=== PATIENT | male | born 1990 | race Caucasian/White ===

== ENCOUNTER → 2018-03-15 14:17 | Outpatient (CLI) | payer OTHER, SELFPAY ==
--- NOTE | 2018-03-15 14:24 | RAD_ITS ---
STUDY: X-RAY CHEST REASON FOR EXAM: Male, 28 years old. Chest pain. TECHNIQUE: PA and lateral views of the chest. COMPARISON: None. FINDINGS: The lungs are clear and expanded. There is no demonstrated pleural abnormality. Normal size heart. Normal mediastinum and valery. Normal visualized pulmonary arteries. Normal visualized aortic arch and descending thoracic aorta. Normal visualized thoracic spine. Normal visualized ribs, clavicles, and shoulders. There is no demonstrated abnormality of the visualized soft tissue structures of the upper abdomen. RAD/Chest PA and Lateral IMPRESSION: Normal x-ray examination of the chest. Electronically Signed: Chandler Onofre MD at 14:39 EST , Service support ,
[2018-03-15 15:48] LABS: Absolute Lymphocyte Count 2.59 X10^3/ul (0.83-4.51); Absolute Neutrophil Count 3.1 X10^3/uL (2.0-7.7); Basophil# 0.03 X10^3/uL; Basophil% 0.5 % (0-1); Eosinophil# 0.08 X10^3/uL; Eosinophils% 1.2 % (0-5); Hematocrit 46.5 % (40-54); Hemoglobin 15.2 g/dl (13.0-16.5); Lymphocyte # 2.59 X10^3/ul (4.0); Lymphocyte % 39.8 % (19-41); Mean Corp Hgb Conc 32.7 g/gl (32-36); Mean Corpuscular Hgb 28.4 pg (27.0-32.0); Mean Corpuscular Volume 86.8 fL (80-94); Mean Platelet Vol. 9.6 fl (6.2-12.0); Monocyte# 0.68 X10^3/uL; Monocyte% 10.4 % (0-10); Neutrophil # 3.12 X10^3/uL (2.7-7.7); Neutrophil % 47.9 % (47-70); Platelet Count 294 K/mm3 (150-450); RBC Distribution Width CV 12.4 % (11.6-14.6); RBC Distribution Width SD 39.6 fl (35.1-43.9); Red Blood Count 5.36 M/mm3 (4.6-6.2); White Blood Count 6.5 K/mm3 (4.4-11.0)
[2018-03-15 15:51] LABS: POSITIVE COUNT NO; POSITIVE DIFFERENTIAL NO; POSITIVE MORPHOLOGY NO
[2018-03-15 15:59] LABS: D-Dimer Quantitative (DVT/PE) < 0.27 FEU/ug/m (0.27-0.49)
== END ==
PROVIDERS: Family Provider Family Medicine; PCP Family Medicine; Referring Provider Family Medicine; Visit Provider Family Medicine
DX: R07.89 Other chest pain (principal)
CPT/HCPCS: 36415; 71046; 85025; 85379

== ENCOUNTER → 2019-03-21 09:06 | Outpatient (CLI) | payer OTHER, SELFPAY ==
[2016-09-19 22:16] VITALS: BMI 36.6
[2019-03-21 10:34] LABS: Anion Gap 8 (5-15); BUN 24 mg/dL (7-18); BUN/Creat Ratio 22.9 RATIO (10-20); Calcium,Total 9.1 mg/dL (8.5-10.1); Chloride 110 mmol/L (98-107); Cholesterol 178 mg/dL (200); Creatinine, Serum 1.05 mg/dL (0.70-1.30); EST Glomerular Filtration Rate 88 mL/min (>60); Est Glom Filt Rate - Afr Amer 107 mL/min (>60); Glucose 87 mg/dL (74-106); High Density Lipoprotein 39 mg/dL; Potassium 4.2 mmol/L (3.5-5.1); Sodium Level 143 mmol/L (136-145); Triglycerides 105 mg/dL; Very Low Density Lipoprotein 21 mg/dL (5-40)
== END ==
PROVIDERS: PCP Family Medicine; Referring Provider Family Medicine; Visit Provider Family Medicine
DX: E66.9 Obesity, unspecified (principal)
CPT/HCPCS: 36415; 80048; 80061

== ENCOUNTER 2024-02-06 17:38 | Emergency (ER) | payer BC, SELFPAY ==
[2024-02-06] VITALS (7 sets, daily range): BP systolic 102–152; BP diastolic 64–96; PULSE 65–87; RESP 14–18; TEMP 35.6–36.6; O2SAT 97–98; BMI 39.9
--- NOTE | 2024-02-06 17:47 | EKG12_ITS ---
Test Reason : PALP Blood Pressure : */* mmHG Vent. Rate : 81 BPM Atrial Rate : 81 BPM P-R Int : 176 ms QRS Dur : 86 ms QT Int : 366 ms P-R-T Axes : 58 15 29 degrees QTcB Int : 425 ms Normal sinus rhythm Normal ECG Confirmed by BERTIN ROBERTS, NICK ([id number]), editorial intern ANKITA ABDUL ([id number]) on 02/08/2024 6:18:32 AM Referred By: UG/CG Confirmed By: NICK DENTON MD
--- NOTE | 2024-02-06 17:53 | RAD_ITS ---
EXAM: XR CHEST, 1 VIEW CLINICAL INDICATION: chest pain TECHNIQUE: Frontal view of the chest. COMPARISON: March 15, 2018. FINDINGS: LUNGS AND PLEURAL SPACES: Unremarkable. No consolidation or edema. No pneumothorax. No effusion. HEART: Unremarkable. Cardiac silhouette not enlarged. MEDIASTINUM: Central airways and mediastinal contour are unremarkable. BONES/JOINTS: Unremarkable. No acute fracture. SOFT TISSUES: Unremarkable. RAD/Chest 1 View (Portable) IMPRESSION: No radiographic evidence of acute cardiopulmonary disease. Electronically Signed: Tita Barber MD at 18:24 EST ,
[2024-02-06 18:03] LABS: Absolute Lymphocyte Count 3.18 X10^3/uL (0.83-4.51); Absolute Neutrophil Count 5.9 X10^3/uL (2.0-7.7); Basophil# 0.06 X10^3/uL; Basophil% 0.6 % (0-1); Eosinophil# 0.16 X10^3/uL; Eosinophils% 1.6 % (0-5); Hematocrit 46.4 % (40-54); Hemoglobin 15.7 g/dL (13.0-16.5); Lymphocyte # 3.18 X10^3/ul (0.83-4.51); Lymphocyte % 31.5 % (19-41); Mean Corp Hgb Conc 33.8 g/dL (32-36); Mean Corpuscular Hgb 28.4 pg (27.0-32.0); Mean Corpuscular Volume 84.1 fL (80-94); Mean Platelet Vol. 9.2 fl (6.2-12.0); Monocyte# 0.77 X10^3/uL; Monocyte% 7.6 % (0-10); NRBC Flagged by Analyzer 0 % (0-5); Neutrophil # 5.88 X10^3/uL (2.7-7.7); Neutrophil % 58.4 % (47-70); Platelet Count 320 K/mm3 (150-450); RBC Distribution Width CV 12.3 % (11.6-14.6); RBC Distribution Width SD 37.2 fl (35.1-43.9); Red Blood Count 5.52 M/mm3 (4.6-6.2); White Blood Count 10.1 K/mm3 (4.4-11.0)
[2024-02-06 18:29] LABS: Anion Gap 5 (5-15); BUN 21 mg/dL (7-18); BUN/Creat Ratio 17.9 RATIO (10-20); Calcium,Total 9.1 mg/dL (8.5-10.1); Chloride 106 mmol/L (98-107); Creatinine, Serum 1.17 mg/dL (0.70-1.30); EST Glomerular Filtration Rate 75 mL/min (>60); Est Glom Filt Rate - Afr Amer 91 mL/min (>60); Estimated Creatinine Clearance 124.52 ml/min; Glucose 117 mg/dL (74-106); Potassium 3.7 mmol/L (3.5-5.1); Sodium Level 138 mmol/L (136-145); Troponin-I HS (w/2H Reflex) < 3 pg/mL (3.0-78.0)
--- NOTE | 2024-02-06 19:02 | EKG12_ITS ---
Test Reason : REPEAT EKG Blood Pressure : */* mmHG Vent. Rate : 69 BPM Atrial Rate : 69 BPM P-R Int : 178 ms QRS Dur : 94 ms QT Int : 390 ms P-R-T Axes : 46 -2 14 degrees QTcB Int : 417 ms Normal sinus rhythm with sinus arrhythmia Normal ECG Confirmed by NICK DENTON MD ([id number]), editor city ANKITA ABDUL ([id number]) on 02/08/2024 6:12:12 AM Referred By: Confirmed By: NICK DENTON MD
[2024-02-06 20:14] LABS: Reflex Troponin-HS? (from REC) Y
[2024-02-06 20:59] LABS: Troponin-I HS < 3 pg/mL (3.0-78.0)
--- NOTE | 2024-02-06 21:38 | EDS_ITS ---
HPI History of Present Illness Chief Complaint: Palpitations Detail of Chief Complaint: Irregular heartbeat/palpitation with discomfort radiating to left shoulder Informant: patient Onset/Context/Timing Onset: Hours Activity at onset: sudden and rest Timing: Intermittent Quality: Positive for Dull Location: Left Parasternal (Radiation to the left shoulder.) Current Severity: Gone Maximum Severity: Moderate Worsened By: Nothing Relieved By: Nothing Associated Symptoms: Positive for Dyspnea; Negative for Nausea, Vomiting, Diaphoresis, Cough, Fever, Lightheadedness, Acid Reflux or Palpitations Narrative Narrative: Patient is a 34-year-old male. He has a history of atrial fibrillation. He was seen by delivery motorcycle driver at [facility]. He was admitted last year. Echo was negative. He initially was on anticoagulant and switch to aspirin. Still taking aspirin. He saw the delivery motorcycle driver in November of this year. Recommendation was to continue aspirin for another 6 months unless he has another episode. Patient states he is cut back on alcohol since he had the A- fib. He has had recent sweats, weight loss that is probably intentional. He has changed his lifestyle and eating habits. He denies fever, chills night sweats. He denies headache, visual, ocular auditory symptoms. He denies any chest pain or dyspnea at this time. He denies history of hiatal hernia. He denies black or maroon-colored stool. There is no history of VTE. Denies leg pain, swelling discoloration. Prior Similar Symptoms: Yes (Atrial fibrillation) Recent Illness/Hospitalization: No CVD Risk Factors: Positive for Smoking; Negative for Hypertension, Diabetes, Hypercholesterolemia or Family History 1' </=55 PE Risk Factors: Negative for Recent Travel/Surgery, Recent Immobilization, Prior DVT or PE, Cancer or OCP + Smoking + >/=35 TAD Risk Factors: Negative for Marfan's Syndrome, Hypertension or Family History PFSH PFS Medical History Atrial fibrillation Home Medications ?Medication ?Instructions ?Recorded ?Last Taken ?Type aspirin 325 mg capsule 325 mg PO DAILY 02/06/24 Unknown History Allergy/AdvReac Type Severity Reaction Status Date / Time Penicillins (PCN) Allergy Other Verified 02/06/24 17:39 Surgical History Hx of tonsillectomy Social History Smoking Status: Current some day smoker tobacco type: cigarettes, e-cigarettes and smokeless tobacco ROS ROS ED Constitutional Constitutional ED: Denies chills, fever(s), subjective or sweats Eyes Eyes: Reports none ENT ENT ED: Denies rhinorrhea or sore throat Cardiovascular Cardiovascular: Reports as per HPI; Denies orthopnea or paroxysmal nocturnal dyspnea Respiratory/Chest Respiratory/Chest: Denies cough, dyspnea, dyspnea on exertion, orthopnea or paroxysmal nocturnal dyspnea Gastrointestinal Gastrointestinal: Denies abdominal pain, nausea or vomiting Musculoskeletal Musculoskeletal: Denies arthralgias, back pain or myalgias Integumentary Denies rash Neurologic Neurologic: Denies headache(s) or weakness Endocrine Endocrinology: Denies cold intolerance or heat intolerance Hematologic/Lymphatic Hematologic/Lymphatic: Denies easy bleeding or easy bruising EXAM Physical Exam Const Vital Signs: 02/06/24 17:39 02/06/24 17:47 02/06/24 18:24 Temperature 96.1 F L Temperature Source Temporal Pulse Rate 87 Respiratory Rate 18 Respiratory Effort Normal Respiratory Pattern Normal Blood Pressure 152/96 H Blood Pressure Mean 114 Pulse Ox 98 Oxygen Delivery Method Room Air Room Air 02/06/24 18:31 02/06/24 19:00 02/06/24 20:00 Temperature Temperature Source Pulse Rate 69 72 66 Respiratory Rate 17 16 17 Respiratory Effort Respiratory Pattern Blood Pressure 120/73 121/74 H 105/64 Blood Pressure Mean 88 89 77 Pulse Ox 97 97 97 Oxygen Delivery Method Room Air Room Air Room Air Positive well nourished Constitutional Narrative: BMI is 39.9. Patient reports weight loss. He is down approximately 15 pounds. General Appearance ED: Negative for pallor HEENT Reports moist mucous membranes normocephalic and atraumatic Eyes PERRL and EOMs intact bilaterally General Eye ED: Negative for pale conjunctiva or scleral icterus Neck no lymphadenopathy, supple and no JVD Neck Narrative: No carotid bruits. Resp clear to auscultation bilaterally Cardio regular rate, regular rhythm, S1 normal heart sound, S2 normal heart sound and no murmurs GI normal to inspection, nondistended, normoactive bowel sounds, soft to palpation, non-tender, non-distended and no masses; Negative for hepatosplenomegaly Extremity normal to inspection General Extremety ED: Negative for edema, pulses abnormal or tenderness General Extremity: Negative for edema or pulses abnormal Neuro oriented x3, CN's II-XII intact bilaterally and no sensory deficits noted Sensorium / Orientation: awake and alert Motor Exam: strength 5/5 throughout Psych mental status grossly normal Skin no rashes or lesions noted and no wounds General Skin Exam: Negative for jaundice or pallor MDM MDM MDM Narrative Medical decision making narrative: The patient having chest discomfort will rule out cardiac ischemia. Most likely his discomfort is related to paroxysmal atrial fibrillation. Will obtain troponin with 2-hour troponin, EKG and appropriate blood work. History & Record Review Additional record(s) reviewed:: Prior outpatient record ([place] [facility] was accessed. Patient does have history atrial fibrillation. He did have a negative echo. Echo was performed less than 18 months ago.) Lab Data Attestation: I reviewed the patient's lab results. Lab results narrative: CBC is unremarkable. First second troponin were both less than 3. This excludes cardiac etiology of his discomfort. Electrolyte panel is unremarkable. Labs: Laboratory Results - last 24 hr 02/06/24 02/06/24 02/06/24 17:50 19:01 20:20 WBC 10.1 RBC 5.52 Hgb 15.7 Hct 46.4 MCV 84.1 MCH 28.4 MCHC 33.8 RDW Std Deviation 37.2 RDW Coeff of Steffi 12.3 Plt Count 320 MPV 9.2 Immature Gran % (Auto) 0.300 Neut % (Auto) 58.4 Lymph % (Auto) 31.5 Bennett % (Auto) 7.6 Eos % (Auto) 1.6 Baso % (Auto) 0.6 Absolute Neuts (auto) 5.9 Absolute Lymphs (auto) 3.18 Nucleated RBC % 0 Sodium 138 Potassium 3.7 Chloride 106 Carbon Dioxide 26.0 Anion Gap 5 BUN 21 H Creatinine 1.17 Estim Creat Clear Calc 124.52 Est GFR (MDRD) Af Amer 91 Est GFR (MDRD) Non-Af 75 BUN/Creatinine Ratio 17.9 Glucose 117 H Calcium 9.1 Troponin I High Sens < 3 L < 3 L TSH 1.170 Radiography Chest X-Ray - ED: 1 View, Read by ED Physician, Normal, Heart, Lungs, Mediastinum, Bony Structures and No Acute Disease Diagnostic Testing: Clinical Impression(s) from Imaging Studies Chest X-Ray 02/06/24 17:53 IMPRESSION: No radiographic evidence of acute cardiopulmonary disease. Electronically Signed: Tita Barber MD at 18:24 EST , EKG Initial EKG: Attestation: I personally reviewed and interpreted this EKG as follows: Interpretation: Sinus Rhythm (Rate is 75. EKG is normal. HI interval is 198 ms. QS duration 94 ms. QT duration 384 ms. [place] is normal.) Treatment and Re-Evaluation :: In light of patient's history and description and all like that he had a episode of paroxysmal atrial fibrillation. Patient was instructed to continue taking his aspirin and follow-up with his delivery motorcycle driver at [facility]. Discharge Plan Triage Chief Complaint: Palpitations ED Provider: Bean Cormier Dx/Rx/DC Orders Clinical Impression: Paroxysmal A-fib, Chest discomfort Instructions: ED AFIB Prescriptions: No Action aspirin 325 mg capsule 325 mg PO DAILY Primary Care Provider: Rocael Henry Referrals: Rocael Henry MD [Primary Care Provider] - 1-2 Weeks Activity Restrictions/Additional Instructions: Recommend contacting your delivery motorcycle driver for follow-up and the next couple of weeks. Continue taking aspirin Print Language: Italian Disposition Disposition: Home, Self Care
== END 2024-02-06 22:06 | disposition home or self-care (01) ==
PROVIDERS: Emergency Provider Emergency Medicine; PCP Family Medicine; Visit Provider Emergency Medicine
DX: I48.0 Paroxysmal atrial fibrillation (principal); Z79.82 Long term (current) use of aspirin; R07.89 Other chest pain; Z79.01 Long term (current) use of anticoagulants; R63.4 Abnormal weight loss; Z68.39 Body mass index [BMI] 39.0-39.9, adult; F17.210 Nicotine dependence, cigarettes, uncomplicated
CPT/HCPCS: 71045; 80048; 84443; 84484; 85025; 93005; 99284; A4216

== ENCOUNTER → 2025-01-15 | Outpatient (CLI) | payer BC, SELFPAY ==
[2025-01-15 12:20] LABS: Hematocrit 47.1 % (40-54); Hemoglobin 15.0 g/dL (13.0-16.5); Immature Granulocytes Count 0.010 X10^3/uL (0.0-0.0); Mean Corp Hgb Conc 31.8 g/dL (32-36); Mean Corpuscular Volume 87.2 fL (80-94); Mean Platelet Vol. 9.4 fl (6.2-12.0); NRBC Flagged by Analyzer 0 % (0-5); Platelet Count 297 K/mm3 (150-450); RBC Distribution Width CV 12.3 % (11.6-14.6); RBC Distribution Width SD 39.4 fl (35.1-43.9); Red Blood Count 5.40 M/mm3 (4.6-6.2); White Blood Count 4.6 K/mm3 (4.4-11.0)
[2025-01-15 13:16] LABS: AST(SGOT) 17 U/L (<=37); Alanine Aminotransfer ALT/SGPT 16 U/L (<=46); Albumin, Serum 4.6 g/dL (3.5-5.0); Alkaline Phosphatase 79 U/L (40-129); Anion Gap 12 (5-15); BUN 22 mg/dL (4-19); BUN/Creat Ratio 20.8 RATIO (10-20); Calcium,Total 9.6 mg/dL (7.6-11.0); Carbon Dioxide 24.4 mmol/L (21.0-32.0); Chloride 104 mmol/L (98-108); Ferritin 329 ng/mL (37-417); Globulin 2.2 g/dL (2.2-4.2); Glucose 92 mg/dL (70-99); Iron 92 ug/dL (65-175); Potassium 4.6 mmol/L (3.3-5.1); Vitamin B12 497 pg/mL (180-914); Vitamin D,25 Hydroxy 29.3 ng/mL (30-100)
== END | disposition home or self-care (01) ==
LOC: BFHLAB 11:02
PROVIDERS: PCP Nurse Practitioner Family; Visit Provider Nurse Practitioner Family
DX: R68.82 Decreased libido (principal); R53.83 Other fatigue
CPT/HCPCS: 36415; 80053; 82306; 82607; 82728; 83540; 84403; 84439; 84443; 85025